=== PATIENT | male | born 1975 | race Caucasian/White ===

== ENCOUNTER 2016-12-27 10:11 | Emergency (ER) | payer OTHER ==
[~2016-12-27] VITALS: Ht 172.7 cm; Wt 95.0 kg
[~2016-12-27 10:11] MED LIST: AUGMENTIN875TAB PO; LORTAB 10 PO; NO; ULTRAM50 MG OR
[2016-12-27] MEDS ORDERED: FLEXERIL PO (13:04)
[2016-12-27] MEDS ORDERED: MOTRIN800 MG PO (13:04)
[2016-12-27] MEDS ORDERED: LORTAB 5-325 MG1 TAB PO (13:04)
[2016-12-27 13:09] VITALS: BP 141/97
== END 2016-12-27 13:25 | disposition home or self-care (01) | DRG 552 ==
LOC: ED 10:11
DX: M54.5 Low back pain (principal); M79.1 Myalgia

== ENCOUNTER 2017-05-20 13:16 | Emergency (ER) | payer OTHER ==
[~2017-05-20] VITALS: Ht 172.7 cm; Wt 90.0 kg
[~2017-05-20 13:16] MED LIST changes: +FLEXERIL PO; +LORTAB 5-325 MG1 TAB PO; +MOTRIN800 MG PO
[2017-05-20] MEDS ORDERED: NAPROSYN500 MG PO (14:53)
[2017-05-20 14:56] VITALS: BP 136/86
== END 2017-05-20 14:59 | disposition home or self-care (01) | DRG 93 ==
LOC: ED 13:16
DX: G89.29 Other chronic pain (principal); M25.511 Pain in right shoulder; M25.521 Pain in right elbow; M79.631 Pain in right forearm

== ENCOUNTER → 2018-10-13 | Outpatient (REF) | payer OTHER ==
[~2018-10-13] MED LIST changes: +CELEBREX200 M1; +CYCLOBENZAPRINE10 MG PO; +NAPROSYN500 MG PO
== END | disposition home or self-care (01) ==
LOC: MRI 12:45
PROVIDERS: ATTEND Physician Assistant Medical
DX: M54.5 Low back pain (principal)

== ENCOUNTER 2020-04-10 11:39 | Emergency (ER) | payer MEDICAID ==
[~2020-04-10] VITALS: Ht 172.7 cm; Wt 95.4 kg
[2020-04-10 13:01] LABS: ANION GAP 14 (6-22 (CALC)); BUN 12 mg/dL (9-20); BUN/CREATININE RATIO 12 (12-20 (CALC)); CARBON DIOXIDE 27 mmol/l (22-30); CHLORIDE 99 mmol/l (95-108); GFR > 60 ML/MIN (>=60 (CALC)); GFR FOR AFR.AMER. > 60 ML/MIN (>=60 (CALC)); SODIUM 135 mmol/l (137-146)
[2020-04-10 13:06] LABS: HEMATOCRIT 46.3 % (39.0-50.0); HEMOGLOBIN 15.4 g/dl (14.0-18.0); IMMATURE GRANULOCYTES 2.3 % (0.0-5.0); MEAN CELL VOLUME 84.3 fL CALC (80.0-100.0); MEAN CORPUSCULAR HGB 28.1 pG CALC (26.0-32.0); MEAN CORPUSCULAR HGB CONC 33.3 g/dL CAL (32.0-36.0); NEUT# 6.85 thou/uL (1.82-7.42); RED BLOOD COUNT 5.49 mill/uL (4.70-6.10)
[2020-04-10 13:07] LABS: POTASSIUM 5.2 mmol/l (3.5-5.1)
[2020-04-10] MEDS ORDERED: METFORMIN HCL1000 MG PO (17:29)
[2020-04-10 17:40] VITALS: BP 124/77
== END 2020-04-10 17:40 | disposition home or self-care (01) ==
LOC: ED 11:39
PROVIDERS: Student in an Organized Health Care Education/Training Program
DX: R20.2 Paresthesia of skin (principal); E11.9 Type 2 diabetes mellitus without complications; F17.220 Nicotine dependence, chewing tobacco, uncomplicated
CPT/HCPCS: A9579

== ENCOUNTER 2023-01-21 15:39 | Emergency (ER) | payer OTHER ==
[2023-01-21] VITALS (10 sets, daily range): BP systolic 115–139; BP diastolic 66–95
[~2023-01-21] VITALS: Ht 172.7 cm; Wt 97.5 kg
[~2023-01-21 15:39] MED LIST changes: +METFORMIN HCL1000 MG PO
[2023-01-21 16:07] LABS: BASO% 0.2 % (0-3); EOS% 1.4 % (0-8); HEMATOCRIT 41.8 % (39.0-50.0); HEMOGLOBIN 14.5 g/dl (14.0-18.0); IMMATURE GRANULOCYTES 0.4 % (0.0-5.0); MEAN CELL VOLUME 85.8 fL CALC (80.0-100.0); MEAN CORPUSCULAR HGB 29.8 pG CALC (26.0-32.0); MEAN CORPUSCULAR HGB CONC 34.7 g/dL CAL (32.0-36.0); MONO% 11.9 % (2-13); NEUT# 8.14 thou/uL (1.82-7.42); NEUT% 71.1 % (42-76); RED BLOOD COUNT 4.87 mill/uL (4.70-6.10)
[2023-01-21 16:19] LABS: ALBUMIN 4.9 g/dL (3.2-5.0); ALKALINE PHOSPHATASE 83 u/l (38-126); BILIRUBIN, TOTAL 0.5 mg/dL (0.2-1.3); BUN 10 mg/dL (9-20); BUN/CREATININE RATIO 7 (12-20 (CALC)); CHLORIDE 104 mmol/l (95-108); CREATININE 1.4 mg/dL (0.7-1.3); GFR FOR AFR.AMER. > 60 ML/MIN (>=60 (CALC)); GFR OTHER RACES 54 ML/MIN (>=60 (CALC)); LIPASE 48 u/l (23-300); POTASSIUM 4.5 mmol/l (3.5-5.1); SGOT/AST 56 u/l (17-59); SODIUM 138 mmol/l (137-146); TOTAL PROTEIN 7.6 g/dL (6.3-8.2)
[2023-01-21] MEDS ORDERED: TOPIRAMATE25 MG PO (16:21)
[2023-01-21] MEDS ORDERED: TRAZODONE HYDR150 MG (16:21)
[2023-01-21] MEDS ORDERED: GUANFACINE HYDRO (16:21)
[2023-01-21] MEDS ORDERED: RISPERDAL0.5 MG PO (16:21)
[2023-01-21 16:22] LABS: ANION GAP 21 (6-22 (CALC)); CARBON DIOXIDE 18 mmol/l (22-30)
[2023-01-21] MEDS ORDERED: METFORMIN HCL1000 MG PO (16:22)
[2023-01-21] MEDS ORDERED: GABAPENTIN400 M2 PO (16:22)
[2023-01-21 18:02] LABS: URINE BILIRUBIN - DIPSTICK NEGATIVE (NEGATIVE); URINE BLOOD DIPSTICK LARGE (NEGATIVE); URINE COLOR YELLOW; URINE GLUCOSE - DIPSTICK 250 mg/dL (NEGATIVE); URINE KETONE NEGATIVE (NEGATIVE); URINE LEUK ESTERASE NEGATIVE (NEGATIVE); URINE PROTEIN - DIPSTICK TRACE mg/dL (NEG-TRACE); URINE SPECIFIC GRAVITY 1.025; URINE UROBILINOGEN - DIPSTICK 0.2 E.U./dL (0.2)
[2023-01-21 18:03] LABS: URINE NITRITE - DIPSTICK NEGATIVE (Negative)
[2023-01-21 18:05] LABS: URINE MUCUS RARE hpf (NONE-FEW); URINE WBC 0-2 WBC/hpf (0-5)
[2023-01-21] MEDS ORDERED: TAMSULOSIN HCL0.4 MG PO (18:09)
[2023-01-21] MEDS ORDERED: HYDROCO/APAP1 TA9 PO (18:17)
== END 2023-01-21 18:32 | disposition home or self-care (01) ==
LOC: ED 15:39
PROVIDERS: Family Medicine
DX: N13.2 Hydronephrosis with renal and ureteral calculous obstruction (principal); K58.0 Irritable bowel syndrome with diarrhea; F40.10 Social phobia, unspecified; F17.200 Nicotine dependence, unspecified, uncomplicated